=== PATIENT | male | born 1955 | race Caucasian/White ===

== ENCOUNTER 2022-07-25 06:32 | Emergency (ER) | payer BC, MEDICARE ==
[2022-07-25] MEDS ORDERED: Sodium Chloride 0.9% 10 ML Syringe FLUSH PRN ×2 (06:34→09:18)
[2022-07-25] MEDS ORDERED: Aspirin 81 MG Tab.Chew PO ONE (06:34)
[2022-07-25] MEDS: Nitroglycerin 0.4 MG Tab.SL SL PRN ×3 (06:45→07:19)
[2022-07-25 06:59] LABS: ESTIMATED GFR 83 mL/min (>60)
[2022-07-25 07:00] LABS: TROPONIN I HIGH SENSITIVITY 77.4 pg/mL (<=60.3)
[2022-07-25] MEDS ORDERED: Heparin Sodium 5,000 Units/ML Vial IVPUSH ONE (07:02)
[2022-07-25] MEDS ORDERED: Heparin Sodium/D5W 25,000 UNITS/500 ML BAG IV SCH (07:15)
[2022-07-25] MEDS ORDERED: Alum Hydrox/Mag Hydrox/Simeth 15 ML, Lidocaine 2% 15 ML PO ONE ×2 (07:15)
[2022-07-25] MEDS ORDERED: Nitroglycerin/D5W 25 MG/250 ML BOTTLE IV SCH (07:15)
[2022-07-25] MEDS ORDERED: HYDROmorphone 0.5 MG/0.5 ML Syringe IVPUSH ONE (07:46)
[2022-07-25] MEDS ORDERED: Sodium Chloride 0.9% 100 ML IV ONE (09:18)
[2022-07-25] MEDS ORDERED: Iopamidol 755 Mg/ML 100 ML Bottle IV SCH (09:30)
== END 2022-07-25 11:10 ==
LOC: JP.ED 06:32
DX: I21.4 Non-ST elevation (NSTEMI) myocardial infarction (principal); I25.110 Atherosclerotic heart disease of native coronary artery with unstable angina pectoris; I45.10 Unspecified right bundle-branch block; Z95.1 Presence of aortocoronary bypass graft; Z20.822 Contact with and (suspected) exposure to COVID-19
CPT/HCPCS: 36415; 71045; 71275; 80053; 84484; 85025; 85379; 86140; 93005; 93010; 96365; 96366; 96368; 96375; 99285; A9270; J1170; J1644; J3490; Q9967; U0002